=== PATIENT | female | born 1985 | race Caucasian/White ===

== ENCOUNTER 2021-11-03 14:20 | Observation (INO) ==
[2021-11-03] MEDS ORDERED: ONDANSETRON 4 MG/2 ML VIAL IV PRN (14:31)
[2021-11-03] MEDS ORDERED: MORPHINE 2 MG/1 ML SYRINGE IV PRN (14:31)
[2021-11-03] MEDS ORDERED: BENZONATATE 100 MG CAPSULE PO PRN (14:37)
[2021-11-03] MEDS ORDERED: guaiFENesin 200 MG/10 ML UDCUP PO PRN (14:37)
[2021-11-03] MEDS: AZITHROMYCIN 250 MG TABLET PO SCH (15:40)
[2021-11-03] MEDS: ENOXAPARIN 40 MG/0.4 ML SYRINGE SUBCUT SCH (15:40)
[2021-11-03] MEDS: SODIUM CHLORIDE 0.9% 1,000 ML IV SCH ×2 (15:43→23:47)
[2021-11-03 16:57] LABS: High Sensitive Troponin I* < 3.0 ng/L (0-54)
[2021-11-03 18:35] LABS: High Sensitive Troponin I* < 3.0 ng/L (0-54)
[2021-11-03] MEDS: DOCUSATE SODIUM 100 MG CAPSULE PO SCH (21:46)
[2021-11-04] MEDS: ACETAMINOPHEN 325 MG TABLET PO PRN ×2 (04:01→11:03)
[2021-11-04 04:41] LABS: Hematocrit 36.7 VOL% (35.7-47.0); Immature Granulocytes % 0.3 %; Immature Granulocytes Absolute 0.01 #; Lymphocytes # 0.7 10*3/uL (1.4-4.0); Mean Corpuscular HGB Conc 32.7 GM/DL (32-36); Mean Corpuscular Volume 91.8 FL (87-102); Mean Platelet Volume 9.4 FL (9.6-12.0); Monocytes # 0.3 10*3/uL (0.11-0.8); Neutrophils % 69.7 % (38.7-73.9); Platelet Count 252 T/CUMM (130-400); Red Cell Distribution Width 12.6 % (9.3-17.3); White Blood Count 3.4 T/CUMM (4-12)
[2021-11-04 05:14] LABS: Albumin 3.3 G/DL (3.4-5.0); Bilirubin,Total 0.9 MG/DL (0.20-1.00); Calcium 8.3 MG/DL (8.5-10.1); High Sensitive Troponin I* < 3.0 ng/L (0-54); Osmolality,Calculated 284.3 MOS/KG (273-304); Potassium 4.1 MMOL/L (3.5-5.1); Total Protein 6.4 G/DL (6.4-8.2)
[2021-11-04] MEDS ORDERED: MELOXICAM 7.5 MG TABLET PO PRN (08:39)
[2021-11-04] MEDS: DOCUSATE SODIUM 100 MG CAPSULE PO SCH ×2 (09:14→20:56)
[2021-11-04] MEDS: PANTOPRAZOLE 40 MG TABLET PO SCH (09:14)
[2021-11-04] MEDS: AZITHROMYCIN 250 MG TABLET PO SCH (09:14)
[2021-11-04] MEDS: SODIUM CHLORIDE 0.9% 1,000 ML IV SCH ×3 (09:14→21:45)
[2021-11-04] MEDS: methylPREDNISolone SOD SUC 40 MG/1 ML VIAL IV SCH ×2 (09:15→16:43)
[2021-11-04] MEDS: HYDROcodone/CHLORPHENIRAMINE ER 5 ML UDCUP PO PRN ×2 (09:15→20:56)
[2021-11-04] MEDS: ENOXAPARIN 40 MG/0.4 ML SYRINGE SUBCUT SCH (14:42)
[2021-11-04] MEDS ORDERED: cefTRIAXone 1,000 MG in SODIUM CHLORIDE 0.9% 100 ML IV SCH (15:00)
[2021-11-05] MEDS: methylPREDNISolone SOD SUC 40 MG/1 ML VIAL IV SCH (01:12)
[2021-11-05] MEDS: ACETAMINOPHEN 325 MG TABLET PO PRN (05:27)
[2021-11-05 08:26] VITALS: BP 137/75
[2021-11-05] MEDS ORDERED: cefTRIAXone 1,000 MG in SODIUM CHLORIDE 0.9% 100 ML IV SCH (09:00)
[2021-11-05] MEDS: DOCUSATE SODIUM 100 MG CAPSULE PO SCH (09:43)
[2021-11-05] MEDS: PANTOPRAZOLE 40 MG TABLET PO SCH (09:43)
[2021-11-05] MEDS: AZITHROMYCIN 250 MG TABLET PO SCH (09:43)
[2021-11-05] MEDS: HYDROcodone/CHLORPHENIRAMINE ER 5 ML UDCUP PO PRN (09:44)
[2021-11-05] MEDS: SODIUM CHLORIDE 0.9% 1,000 ML IV SCH (10:34)
== END 2021-11-05 11:54 | disposition home or self-care (01) ==
LOC: N.TELEN
PROVIDERS: ADMIT Internal Medicine; ATTEND Internal Medicine